=== PATIENT | male | born 1975 | race Caucasian/White ===

== ENCOUNTER 2017-11-18 07:59 | Emergency (ER) | payer BC ==
[2017-11-18 08:32] LABS: BASOPHILS 0.3 % (0-2); EOSINOPHILS 2.8 % (0-7); HEMATOCRIT 44.7 % (42.0-54.0); HEMOGLOBIN 15.3 g/dL (13.5-17.5); IMMATURE GRANULOCYTES 0.2 % (0-5); LYMPHOCYTES 30.1 % (15-50); MCH 28.9 pg (26.0-34.0); MCHC 34.2 g/dL (31.0-37.0); MCV 84.3 fL (80.0-100.0); MONOCYTES 13.7 % (2-11); NEUTROPHILS 52.9 % (40-80); PLATELET COUNT 210 10x3/uL (130-400); RDW 13.3 % (11.5-14.5); WBC 6.1 10x3/uL (4.8-10.8)
[2017-11-18 08:44] LABS: ALBUMIN 4.2 g/dL (3.4-5.0); ALKALINE PHOSPHATASE 61 U/L (46-116); ALT (SGPT) 38 U/L (10-68); BILIRUBIN - TOTAL 0.28 mg/dL (0.2-1.3); CALC OSMOLALITY 275 mosm/kg (275-300); CALCIUM 9.7 mg/dL (8.5-10.1); CARBON DIOXIDE 26.6 mmol/L (21.0-32.0); CHLORIDE - SERUM 100 mmol/L (98-107); CREATININE - SERUM 1.1 mg/dL (0.6-1.3); GLUCOSE 119 mg/dL (74-106); PROTEIN - SERUM 7.8 g/dL (6.4-8.2); SODIUM 136 mmol/L (136-145); UREA NITROGEN 20 mg/dL (7-18); eGFR NON AFRICAN AMERICAN 77 mL/min (90-120)
[2017-11-18 08:48] LABS: CREATINE KINASE 204 UL (21-232)
[2017-11-18 08:52] LABS: TROPONIN-I < 0.017 ng/mL (0.000-0.060)
== END 2017-11-18 09:05 | disposition home or self-care (01) ==
LOC: D.ER 07:59
PROVIDERS: Emergency Medicine
DX: I10 Essential (primary) hypertension (principal); J20.9 Acute bronchitis, unspecified; F17.200 Nicotine dependence, unspecified, uncomplicated

== ENCOUNTER → 2019-05-27 10:40 | Outpatient (CLI) | payer BC | END | disposition home or self-care (01) | LOC: D.LAB 10:40 | PROVIDERS: ATTEND Nurse Practitioner Family | DX: R06.02 Shortness of breath (principal) ==

== ENCOUNTER → 2019-06-10 13:03 | Outpatient (CLI) | payer BC ==
--- NOTE | 2019-06-13 08:42 | ST ---
PATIENT:DONALD LACEY MEDICAL RECORD: [id number] SEX: M LOCATION:[facility] ORDER #: ADMISSION DATE: 06/10/19 AGE OF PATIENT: 43 REFERRING PHYSICIAN: INTERPRETING PHYSICIAN: ROBE SHIELDS MD DATE OF SERVICE: 06/10/2019 PROCEDURE: Treadmill stress test. Baseline ECG is normal. Exercised for 10 minutes under Gallo protocol. Maximum heart rate was 156 beats per minute, greater than 85% max predicted. No ECG changes of ischemia. No symptoms of ischemia. Normal blood pressure response to exercise. No arrhythmias noted. Good exercise tolerance for age. TRANSINT:[id number] Voice Confirmation ID: [id number] DOCUMENT ID: [id number] ROBE SHIELDS MD at 0842 CC: [id number] DICTATION DATE: 06/11/19 1350 PROGRAM MANAGEMENT INTERN: 06/11/19 1432 DEP CLI 06/10/19 [id number] [place] [address]
--- NOTE | 2019-06-13 08:42 | EC ---
PATIENT:DONALD LACEY DATE OF SERVICE: 06/10/19 SEX: M MEDICAL RECORD: [id number] DATE OF : 71 [facility] AGE OF PATIENT: 43 ADMISSION DATE: 06/10/19 REFERRING PHYSICIAN: INTERPRETING PHYSICIAN: ROBE SHIELDS MD ECHOCARDIOGRAM REPORT ECHO CHARGES 4 ECHO COMPLETE Date: 06/10/19 CLINICAL DIAGNOSIS: HEART MURMUR ECHOCARDIOGRAPHIC MEASUREMENTS (adult normal given) AC root (d.<3.7cm) 3.1 cm LV Septum d (<1.2 cm> 1.4 cm Valve Excursion 1.8 cm LV Septum (systole) 1.5 cm Left Atria (s.<4.0cm> 3.9 cm LVPW d(<1.2cm) 1.3 cm RV (d.<2.3cm) 3.6 cm LVPW (sytole) 1.6 cm LV diastole(<5.6CM) 5.4 cm MV E-F(>70mm/sec) cm LV systole 3.9 cm LVOT Diameter 2.2 cm MV exc.(>10mm) 1.9 cm Est.ejection fraction (50-75%) % DOPPLER: LVIT cm/sec A 95.0 cm/sec E 86.0 cm/sec LA cm/sec RVSP 21 mmHg LVOT 120 cm/sec AOP1/2T m/s Asc. Ao 142 cm/sec RVOT 76 cm/sec RA cm/sec PA 115 cm/sec AV Gradient Peak 8.05 mmHg AV Mean 4.48 mmHg AV Area 3.1 cm MV Gradient Peak 4.74 mmHg MV Mean 2.46 mmHg MV Area cm COMMENTS: Electrician Helper: Ankit PERAZA Casting Technician: 3 Dr. Kebede TAPE# PACS Pericardial Effusion N DATE OF SERVICE: 06/10/2019 Adequate 2D, color flow imaging, spectral Doppler, and M-Mode Borderline LVH. LV internal dimension is normal. Wall motion is normal. EF is greater than or equal to 55%. Aortic valve is tricuspid. No evidence of stenosis by Doppler interrogation. Left atrium is normal at 3.9 cm. Mitral valve shows no prolapse. Trace MR. Right-sided chambers are grossly normal. Trace TR. ECHOCARDIOGRAM REPORT [id number] DONALD LACEY TRANSINT:[id number] Voice Confirmation ID: [id number] DOCUMENT ID: [id number] ROBE SHIELDS MD at 0842 CC: [id number] DICTATION DATE: 06/11/19 1224 ANESTHESIOLOGY TECHNOLOGIST: 06/11/19 1239 DEP CLI 06/10/19 [id number] [place] [address]
== END | disposition home or self-care (01) ==
LOC: D.HCCARDIO 13:03
PROVIDERS: ATTEND Internal Medicine Interventional Cardiology
DX: R01.1 Cardiac murmur, unspecified (principal); R07.9 Chest pain, unspecified

== ENCOUNTER 2020-12-10 07:10 | Emergency (ER) | payer BC ==
[~2020-12-10] VITALS: Ht 188 cm; Wt 127.3 kg
[2020-12-10 07:16] VITALS: Ht 188 cm; Wt 127.3 kg
[2020-12-10] MEDS ORDERED: CARDIZEM LA180 MG PO (07:49)
[2020-12-10 08:38] LABS: HEMATOCRIT 42.7 % (42.0-54.0); HEMOGLOBIN 14.3 g/dL (13.5-17.5); LYMPHOCYTES 33.2 % (15-50); MCH 29.7 pg (26.0-34.0); MCHC 33.5 g/dL (31.0-37.0); MCV 88.8 fL (80.0-100.0); MEAN PLATELET VOLUME 10.2 fL (7.4-10.4); NEUTROPHILS 52.4 % (40-80); PLATELET COUNT 175 10x3/uL (130-400); RBC 4.81 10x6/uL (4.20-6.10); RDW 12.3 % (11.5-14.5); WBC 4.4 10x3/uL (4.8-10.8)
[2020-12-10 08:53] LABS: CALC OSMOLALITY 278 mosm/kg (275-300); CALCIUM 9.3 mg/dL (8.5-10.1); CARBON DIOXIDE 25.7 mmol/L (21.0-32.0); CHLORIDE - SERUM 103 mmol/L (98-107); CREATININE - SERUM 0.9 mg/dL (0.6-1.3); GLUCOSE 136 mg/dL (74-106); SODIUM 137 mmol/L (136-145); UREA NITROGEN 21 mg/dL (7-18); eGFR NON AFRICAN AMERICAN > 90 mL/min (90-120)
[2020-12-10 09:12] LABS: ALBUMIN 3.9 g/dL (3.4-5.0); ALKALINE PHOSPHATASE 54 U/L (30-120); ALT (SGPT) 42 U/L (10-68); BILIRUBIN - TOTAL 0.35 mg/dL (0.2-1.3); CKMB 1.2 U/L (0.0-3.6); CREATINE KINASE 237 UL (21-232); PROTEIN - SERUM 7.4 g/dL (6.4-8.2); TROPONIN-I < 0.017 ng/mL (0.000-0.060)
[2020-12-10 10:22] VITALS: BP 125/66
== END 2020-12-10 10:15 | disposition home or self-care (01) ==
LOC: D.ER 07:10
PROVIDERS: Emergency Medicine
DX: I47.1 Supraventricular tachycardia (principal); J45.909 Unspecified asthma, uncomplicated; Z72.0 Tobacco use